=== PATIENT | male | born 1960 | race Caucasian/White ===

== ENCOUNTER 2016-10-16 19:33 | Emergency (ER) | payer OTHER ==
[~2016-10-16] VITALS: Ht 182.9 cm; Wt 93.0 kg
--- NOTE | 2016-10-16 19:55 | ED INFLUENZA/URI COMPLAINT ---
History of Present Illness General Chief Complaint: Upper Respiratory Sx/Fever Stated Complaint: FEVER, NOSE CONGESTION Source: patient, family Exam Limitations: no limitations Vital Signs & Intake/Output Vital Signs & Intake/Output Vital Signs Date Time Temp Pulse Resp B/P Pulse O2 O2 Flow FiO2 Ox Delivery Rate 10/167 99.1 95 18 142/65 94 Room Air 10/17 2123 100.3 10/16 2122 100.3 104 18 144/80 92 Room Air 10/16 2017 94 10/16 2013 101.0 10/16 1940 99.4 112 18 185/85 92 Room Air ED Intake and Output 10/17 0000 10/16 1200 Intake Total 150 Output Total Balance 150 Intake, Oral 150 Patient 205 lb Weight Allergies Coded Allergies: No Known Allergies (10/16/16) Reconcile Medications Albuterol Sulfate (Ventolin Hfa) 90 MCG HFA.AER.AD 2 PUF INH Q4-6 PRN PRN WHEEZING/SHORTNESS OF BREATH Aspirin (Ecotrin*) 81 MG TABLET.DR 1 TAB PO DAILY HEART/BLOOD (Reported) Atorvastatin Calcium 40 MG TABLET 1 TAB PO DAILY CHOLESTEROL (Reported) Azithromycin 250 MG TABLET 1 DP PO AD ANTIBIOTIC (Reported) 2 the first day followed by 1 for days 2-5 Clopidogrel Bisulfate (Clopidogrel) 75 MG TABLET 1 TAB PO DAILY BLOOD THINNER (Reported) Guaifenesin/Codeine Phosphate (Cheratussin AC Syrup) 100 MG-10 MG/5 ML LIQUID 10 ML PO Q4P PRN COUGH (Reported) Lisinopril 40 MG TABLET 1 TAB PO DAILY BP (Reported) Metformin HCl (Metformin HCl ER) 500 MG TAB.ER.24H 3 TAB PO QPM DM (Reported) Metoprolol Succinate 25 MG TAB 1 TAB PO DAILY HEART/BP (Reported) [place]-3 Fatty Acids/Fish Oil (Fish Oil 1,000 MG Softgel) 340 MG-1,000 MG CAPSULE 1 CAP PO BID SUPPLEMENT (Reported) Polycarbophil (Fiber) (Unknown Strength) TABLET (Unknown Dose) PO DAILY SUPPLEMENT (Reported) Timolol Maleate 0.5 % DROPS 1 GTT OD BID RIGHT EYE (Reported) Triage Note: PT STATES THAT HE WAS STARTED ON ABT MONDAY DUE TO COUGH AND FEVER, STATES THAT THE COUGH CONTINUES, PRODUCTIVE OF CLEAR SPUTUM, RUNNY NOSE , GREEN DISCHARGE. COMPLAINS OF FEVERS, TEMP 99.4, PT IS ON COUGH MED WITH CODIENE WHICH HELPS A LITTLE, O2 SAT 92 % AT TRIAGE Triage Nurses Notes Reviewed? yes HPI: Patient is a 56 year old male presents complaining of cough, chest congestion, fevers. Symptoms onset 8 days ago. Patient reports fevers between up to 102.7. Cough with intermittent sputum production. Patient saw his primary doctor on and was started on Azithromycin and Robitussin with codeine. Minimal improvement with the azithromycin(has taken 4 doses). Associated sore throat. Patient was flying back from a trip from the [place] when the symptoms started. (ASHLYN REVELES) Past History Travel History Traveled to [place] past 21 day No Medical History Any Pertinent Medical History? 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 No (ASHLYN REVELES) Review of Systems Review of Systems Constitutional: Reports: chills, fever, malaise. EENTM: Reports: nasal congestion, throat pain. Respiratory: Reports: cough, short of breath, wheezing. Cardiovascular: Denies: chest pain. GI: Denies: abdominal pain, vomiting. Musculoskeletal: Reports: no symptoms. Skin: Reports: no symptoms. Neurological/Psychological: Reports: no symptoms. Hematologic/Endocrine: Reports: no symptoms. Immunologic/Allergic: Reports: no symptoms. (ASHLYN REVELES) Physical Exam Physical Exam General Appearance: well developed/nourished, alert, awake Head: atraumatic, normal appearance Ears, Nose, Throat: normal ENT inspection, moist mucous membrane, hearing grossly normal, pharynx normal Neck: normal inspection, supple, full range of motion Respiratory: mild diffuse expiratory wheezing Cardiovascular: tachycardia (regular rhythm) Back: normal inspection, normal range of motion Extremities: normal inspection, normal capillary refill, normal range of motion, no edema Neurologic/Psych: no motor/sensory deficits, awake, alert, oriented x 3, normal gait, normal mood/affect Skin: intact, normal color, warm/dry Lymphatic: no anterior cervical ashwini Core Measures Severe Sepsis Present: No Septic Shock Present: No (ASHLYN REVELES) Progress Differential Diagnosis: influenza, pneumonia, pharyngitis, sinusitis, bronchitis , sepsis Plan of Care: Orders Procedure Date/time Status LACTIC ACID 10/16 2006 Complete CBC WITHOUT DIFFERENTIAL 10/16 2006 Complete BASIC METABOLIC PANEL 10/16 2006 Complete Laboratory Tests 10/16/16 2307: Lactic Acid Cancelled 10/16/16 2030: Anion Gap 12, Estimated GFR > 60, BUN/Creatinine Ratio 20.0, Glucose 364 H, Lactic Acid 1.3, Calcium 9.8, CBC w Diff NO MAN DIFF REQ, RBC 3.89 L, MCV 94.0, MCH 32.0 H, RDW 12.4, MPV 8.8, Gran % 77.5 H, Lymphocytes % 11.8 L, Monocytes % 9.4 H, Eosinophils % 0.9, Basophils % 0.4, Absolute Granulocytes 6.3, Absolute Lymphocytes 1.0 L, Absolute Monocytes 0.8 H, Absolute Eosinophils 0.1 , Absolute Basophils 0, PUBS MCHC 34.0 Microbiology 10/16 2010 BLOOD: Blood Culture - CAN Cancelled: Cancelled via OE: Per Decision 10/16 2010 BLOOD: Blood Culture - CAN Cancelled: Cancelled via OE: Per MD Decision 10/16/2016 9:00:33 PM: Discussed results of chest x-ray with patient and his . Patient reports mild to moderate improvement after nebulizer treatment. Patient appears to be resting comfortably. Oxygen saturation from 92-94% after nebulizer treatment. Discussed risks and benefits of corticosteroids. Given patient's history of diabetes, is not hypoxic will defer corticosteroids at this time. (ASHLYN REVELES) Diagnostic Imaging: Viewed by Me: Radiology Read. Discussed w/RAD: Radiology Read. Radiology Impression: PATIENT: KAITLYN FUENTES PRESENT AGE: 56 PATIENT ACCOUNT NO: [id number] : 56 LOCATION: [facility] ORDERING PHYSICIAN: EAN DOMINGO DO SERVICE DATE: 10/16/16 EXAM TYPE: RAD - XRY-CHEST XRAY, PA AND LATERAL EXAMINATION: XR CHEST CLINICAL INFORMATION: Cough and fevers. COMPARISON: Chest radiography 07/13/2007. TECHNIQUE: 2 views of the chest were obtained. FINDINGS: The lungs are well expanded. Diffuse bronchovascular prominence with peribronchial thickening. No convincing lobar consolidation. No pulmonary edema, pleural effusion, or pneumothorax. No mediastinal widening. No acute osseous abnormalities. IMPRESSION: Peribronchial thickening and bronchovascular prominence suspicious for small airways inflammation. No evidence of lobar pneumonia. DICTATED BY: KI HAILE MD DATE/TIME DICTATED:10/16/162005 RESIDENTIAL TECH:DAMIÁN DATE/TIME TRANSCRIBED:10/16/162005 CONFIDENTIAL, DO NOT COPY WITHOUT APPROPRIATE AUTHORIZATION. <Electronically signed in Other Vendor System> SIGNED BY: KI HAILE MD 10/16/162010 Initial ED EKG: none (ASHLYN REVELES) Departure Departure Time of Disposition: 2249 Disposition: HOME OR SELF CARE Condition: Stable Clinical Impression Primary Impression: Bronchitis Secondary Impressions: Hyperglycemia Referrals: THANG XIAO,GARTH Bush (PCP/Family) Additional Instructions: Complete the Z-estefani as directed. Continue the Robitussin with codeine as previously directed. Albuterol inhaler every 4-6 hours as needed for wheezing and shortness of breath. Follow up with your primary doctor this week for further evaluation, call in the morning for appointment. Return to the ER if breathing worsening, unable to stay hydrated or worsening of symptoms. Departure Forms: Customer Survey General Discharge Information Prescriptions: Current Visit Scripts Albuterol Sulfate (Ventolin Hfa) 2 PUF INH Q4-6 PRN PRN WHEEZING/SHORTNESS OF BREATH #1 INHAL (ASHLYN REVELES) PA/MILK HANDLER Co-Sign Statement Statement: ED Attending supervision documentation- [] I saw and evaluated the patient. I have also reviewed all the pertinent lab results and diagnostic results. I agree with the findings and the plan of care as documented in the PA's/MILK HANDLER's documentation. [x] I have reviewed the ED Record and agree with the PA's/MILK HANDLER's documentation. [] Additions or exceptions (if any) to the PAs/MILK HANDLER's note and plan are summarized below: [] (SD XIAO,RACHEL Bell)
--- NOTE | 2016-10-16 20:11 | RADIOLOGY REPORT ---
EXAMINATION: XR CHEST CLINICAL INFORMATION: Cough and fevers. COMPARISON: Chest radiography 07/13/2007. TECHNIQUE: 2 views of the chest were obtained. FINDINGS: The lungs are well expanded. Diffuse bronchovascular prominence with peribronchial thickening. No convincing lobar consolidation. No pulmonary edema, pleural effusion, or pneumothorax. No mediastinal widening. No acute osseous abnormalities. IMPRESSION: Peribronchial thickening and bronchovascular prominence suspicious for small airways inflammation. No evidence of lobar pneumonia.
[2016-10-16] MEDS ORDERED: ATORVASTATIN CA40 M1 PO (20:21)
[2016-10-16] MEDS ORDERED: AZITHROMYCIN250 M1 PO (20:21)
[2016-10-16] MEDS ORDERED: LISINOPRIL40 M1 PO (20:21)
[2016-10-16] MEDS ORDERED: CHERATUSSIN AC118 ML PO (20:22)
[2016-10-16] MEDS ORDERED: CLOPIDOGREL75 M1 PO (20:22)
[2016-10-16] MEDS ORDERED: METOPROLOL SUCC25 M1 PO (20:22)
[2016-10-16] MEDS ORDERED: METFORMIN HCL500 M4 PO (20:22)
[2016-10-16] MEDS ORDERED: ASPIRIN EC81 M1 PO (20:23)
[2016-10-16] MEDS ORDERED: TIMOLOL MALEATE5 M4 OD (20:23)
[2016-10-16] MEDS ORDERED: FISH OIL 1,0001 EAC1 PO (20:24)
[2016-10-16] MEDS ORDERED: FIBER625 MG PO (20:24)
[2016-10-16 20:47] LABS: ABSOLUTE BASOPHIL COUNT 0 /CUMM (0.0-0.2); ABSOLUTE EOSINOPHIL COUNT 0.1 /CUMM (0.0-0.7); ABSOLUTE GRANULOCYTE CT 6.3 /CUMM (1.4-6.5); ABSOLUTE MONOCYTE COUNT 0.8 /CUMM (0.10-0.60); BASOPHIL % 0.4 % (0.0-2.0); EOSINOPHIL % 0.9 % (0-5); GRANULOCYTE % 77.5 % (42.2-75.2); HEMATOCRIT 36.6 % (42-52); MEAN PLATELET VOLUME 8.8 FL (7.4-10.4); PLATELET COUNT 144 /CUMM (130-400); RBC DISTRIBUTION WIDTH 12.4 % (11.5-14.5); RED BLOOD CELL CT 3.89 /CUMM (4.70-6.10); WHITE BLOOD CELL COUNT 8.1 /CUMM (4.8-10.8)
[2016-10-16] MEDS ORDERED: VENTOLIN HFA18 GM INH ×2 (21:05→22:40)
[2016-10-16 22:47] VITALS: BP 142/65
== END 2016-10-16 22:59 ==
LOC: ERH 19:33
PROVIDERS: Physician Assistant
DX: J40 Bronchitis, not specified as acute or chronic (principal); R73.9 Hyperglycemia, unspecified
CPT/HCPCS: 1263; 87040; 96372; J1815

== ENCOUNTER 2016-10-19 12:07 | Inpatient (IN) | payer OTHER ==
[~2016-10-19] VITALS: Ht 180.3 cm; Wt 93.0 kg
[~2016-10-19 12:07] MED LIST: ASPIRIN EC81 M1 PO; ATORVASTATIN CA40 M1 PO; AZITHROMYCIN250 M1 PO; CHERATUSSIN AC118 ML PO; CLOPIDOGREL75 M1 PO; FIBER625 MG PO; FISH OIL 1,0001 EAC1 PO; LISINOPRIL40 M1 PO; METFORMIN HCL500 M4 PO; METOPROLOL SUCC25 M1 PO; TIMOLOL MALEATE5 M4 OD; VENTOLIN HFA18 GM INH
--- NOTE | 2016-10-19 12:24 | ED GENERAL ADULT ---
History of Present Illness General Chief Complaint: Upper Respiratory Sx/Fever Stated Complaint: URI/FEVER Vital Signs & Intake/Output Vital Signs & Intake/Output Vital Signs Date Time Temp Pulse Resp B/P Pulse O2 O2 Flow FiO2 Ox Delivery Rate 10/19 2001 99.3 99 20 168/68 93 10/19 194 101.2 10/19 1924 101.2 99 18 172/82 97 Room Air 10/19 1700 99.4 96 18 171/78 96 10/19 1408 99.0 103 24 147/70 92 Room Air 10/19 1248 98.2 67 20 161/79 94 Room Air 10/19 1236 93 Room Air Room Air 10/19 1222 98.0 103 26 138/67 89 Room Air Allergies Coded Allergies: No Known Allergies (10/16/16) Reconcile Medications Albuterol Sulfate (Ventolin Hfa) 90 MCG HFA.AER.AD 2 PUF INH Q4-6 PRN PRN WHEEZING/SHORTNESS OF BREATH Aspirin (Ecotrin*) 81 MG TABLET.DR 1 TAB PO DAILY HEART/BLOOD (Reported) Atorvastatin Calcium 40 MG TABLET 1 TAB PO DAILY CHOLESTEROL (Reported) Clopidogrel Bisulfate (Clopidogrel) 75 MG TABLET 1 TAB PO DAILY BLOOD THINNER (Reported) Guaifenesin/Codeine Phosphate (Cheratussin AC Syrup) 100 MG-10 MG/5 ML LIQUID 10 ML PO Q4P PRN COUGH (Reported) Lisinopril 40 MG TABLET 1 TAB PO DAILY BP (Reported) Metformin HCl (Metformin HCl ER) 500 MG TAB.ER.24H 3 TAB PO QPM DM (Reported) Metoprolol Succinate 25 MG TAB 1 TAB PO DAILY HEART/BP (Reported) [place]-3 Fatty Acids/Fish Oil (Fish Oil 1,000 MG Softgel) 340 MG-1,000 MG CAPSULE 1 CAP PO BID SUPPLEMENT (Reported) Polycarbophil (Fiber) (Unknown Strength) TABLET (Unknown Dose) PO DAILY SUPPLEMENT (Reported) Timolol Maleate 0.5 % DROPS 1 GTT OD BID RIGHT EYE (Reported) Past History Medical History Neurological: NONE EENT: NONE Cardiovascular: CAD, NSTEMI Respiratory: NONE Gastrointestinal: diverticulitis Renal: NONE Musculoskeletal: chronic back pain Psychiatric: NONE Endocrine: NONE Blood Disorders: DVT, peripheral vascular disease Cancer(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 Surgical History Surgical History: cardiac catheterization, vascular surgery bilateral lower extremities Psychosocial History Who do you live with Spouse What is your primary language Stateless Progress Plan of Care: Orders Procedure Date/time Status Consistent Carbohydrate 3 10/20 D Active Heart Healthy Diet 10/20 B Active CBC WITHOUT DIFFERENTIAL 10/20 0600 Active BASIC ELECTROLYTES PLUS BUN&CR 10/20 0600 Active Teach/Educate 10/19 2013 Active Pain Treatment and Response 10/19 2013 Active Nutritional Intake, Monitor 10/19 2013 Active Isolation 10/19 2013 Active Patient Care Conference 10/19 2013 Active Activity/Ambulation 10/19 2013 Active Lab Add-on Test 10/19 1620 Active STREP PNEUMO URINARY ANTIGEN 10/19 1619 Active LEGIONELLA URINARY ANTIGEN 10/19 1619 Active LOWER RESPIRATORY CULTURE 10/19 1619 Active LYME TITRE 10/19 1619 Active Admit to inpatient 10/19 1612 Active Vital Signs 10/19 1612 Active Code Status 10/19 1612 Active Pathway - chart 10/19 1451 Active House Staff 10/19 1451 Active Patient Data 10/19 1451 Active Code Status 10/19 1451 Complete Patient Data 10/19 1444 Active Intake & Output 10/19 1336 Active THROAT CULTURE W/QUICK STREP 10/19 1305 Active RAPID VIRAL INFLUENZA A 10/19 1242 Complete STREP PNEUMO URINARY ANTIGEN 10/19 1242 Complete LEGIONELLA URINARY ANTIGEN 10/19 1242 Complete BLOOD CULTURE 10/19 1242 Active URINALYSIS 10/19 1242 Complete TROPONIN LEVEL 10/19 1242 Complete WESTERGREN SED RATE 10/19 1242 Complete C-REACTIVE PROTEIN 10/19 1242 Complete COMPREHENSIVE METABOLIC PANEL 10/19 1242 Complete CBC WITHOUT DIFFERENTIAL 10/19 1242 Complete EKG 10/19 1242 Active VTE Mechanical Prophylaxis 10/19 UNK Active FingerStick- Glucose 10/19 UNK Active Current Medications Sig/Art Start time Last Medication Dose Stop Time Status Admin Atorvastatin Calcium 40 MG 1700 10/20 1700 AC (Lipitor) Aspirin Buffered 81 MG DAILY 10/20 1000 AC (Ecotrin) Ceftriaxone Sodium 1,000 MG DAILY 10/20 1000 AC (Rocephin) Clopidogrel Bisulfate 75 MG DAILY 10/20 1000 AC (Plavix) Doxycycline Hyclate 100 MG Q12 10/20 1000 AC (Vibramycin) Sodium Chloride 100 ML (Normal Saline 0.9%) Lisinopril 40 MG DAILY 10/20 1000 AC (Prinivil) Metoprolol Succinate 25 MG DAILY 10/20 1000 AC (Toprol XL) Guaifenesin 600 MG Q12 10/19 2200 AC (Mucinex) Timolol Maleate 1 GTT BID 10/19 220 AC (Timoptic) Albuterol Sulfate 2 PUF Q4-6 PRN PRN 10/19 1615 AC (Ventolin) Acetaminophen 1,000 MG Q6P PRN 10/19 1500 AC (Ofirmev) Oxycodone/ 2 TAB Q6P PRN 10/19 1500 AC Acetaminophen (Percocet) Moxifloxacin HCl 400 MG ONCE ONE 10/19 1445 CAN (Avelox I.v. ([facility] 10/19 1600 Only)) Laboratory Tests 10/19/16 1300: Anion Gap 10, Estimated GFR > 60, BUN/Creatinine Ratio 23.8, Glucose 485 H, Calcium 9.2, Total Bilirubin 0.8, AST 58, ALT 93 H, Alkaline Phosphatase 285 H , Troponin I < 0.01, C-Reactive Prot, Quant > 9.0 H, Total Protein 6.1 L, Albumin 3.3 L, Globulin 2.8, Albumin/Globulin Ratio 1.2, CBC w Diff MAN DIFF ORDERED, RBC 3.69 L, MCV 92.9, MCH 32.3 H, RDW 12.3, MPV 8.0, Gran % 85.7 H, Lymphocytes % 6.0 L, Monocytes % 7.7, Eosinophils % 0.6, Basophils % 0 L, Absolute Granulocytes 8.5 H, Absolute Lymphocytes 0.6 L, Absolute Monocytes 0.8 H, Absolute Eosinophils 0.1, Absolute Basophils 0, Platelet Estimate VERIFIED BY SMEAR, Anisocytosis 1+, PUBS MCHC 34.8, ESR [place] 116 H, Urinalysis LIGHT H, Urine Color YEL, Urine Clarity CLEAR, Urine pH 6.0, Ur Specific [place] 1.010, Urine Protein TRACE H, Urine Ketones NEG, Urine Nitrite NEG, Urine Bilirubin NEG, Urine Urobilinogen 0.2, Ur Leukocyte Esterase NEG, Ur Microscopic SEDIMENT EXAMINED, Urine RBC 1-3, Urine WBC 1-3 H, Ur Epithelial Cells FEW, Urine Bacteria RARE H, Urine Mucus FEW, Urine Hemoglobin NEG, Urine Glucose >=1000 H Microbiology 10/19 180 LOWER RESP: Respiratory Culture - RES 10/19 1802 LOWER RESP: Gram Stain - RES 10/19 1619 URINE ROUT: Legionella Antigen - COLB 10/19 1619 URINE ROUT: Streptococcus pneumoniae Antigen (M - COLB 10/19 1619 BLOOD: Blood Culture - CAN Cancelled: Cancelled via OE: Per MD Decision 10/19 1619 BLOOD: Blood Culture - CAN Cancelled: Cancelled via OE: Per MD Decision 10/19 1307 NASOPHARYN: Influenza Virus A & B Rapid Smear - COMP 10/19 1307 BLOOD: Blood Culture - RECD 10/19 1300 URINE ROUT: Legionella Antigen - COMP 10/19 1300 URINE ROUT: Streptococcus pneumoniae Antigen (M - COMP 10/19 1300 BLOOD: Blood Culture - RECD Departure Departure Condition: Stable Referrals: THANG XIAO,GARTH Bush (PCP/Family) Departure Forms: Customer Survey General Discharge Information
--- NOTE | 2016-10-19 12:31 | NUR ---
PT TO ED FOR FLU LIKE SYMPTOMS- FEVER, CHILLS, ACHES, SORE THROAT, INTERMITTENTLY PRODUCTIVE COUGH AND CONGESTION. PT STATES SYMPTOMS STARTED 10/08/16 AFTER RETURNING FROM [facility]. PT SAW HIS PRIMARY CARE ON MONDAY WHO PRESCRIBED A Z PACK AND COUGH MEDICINE WITH CODEINE. PT STILL WASN'T FEELING WELL AND WAS SEEN HERE MONDAY FOR WORK UP AND DC'D HOME. 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 PT ORIGINALLY 89-90% OXYGEN ON RA. PT PLACED ON 2L NC OXYGEN WITH IMPROVEMENT TO 96%. PT SINUS TACH 111 ON CAN VACUUM TESTER. PT ASLO TYPE II DIABETIC WITH F/S 353.
--- NOTE | 2016-10-19 12:40 | NUR ---
MASHA COHEN AT BEDSIDE FOR EVAL.
--- NOTE | 2016-10-19 12:52 | NUR ---
PT TO CAT SCAN VIA STRETCHER NOW.
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
[2016-10-19 13:22] LABS: ABSOLUTE BASOPHIL COUNT 0 /CUMM (0.0-0.2); ABSOLUTE EOSINOPHIL COUNT 0.1 /CUMM (0.0-0.7); ABSOLUTE GRANULOCYTE CT 8.5 /CUMM (1.4-6.5); ABSOLUTE LYMPH COUNT 0.6 /CUMM (1.2-3.4); ABSOLUTE MONOCYTE COUNT 0.8 /CUMM (0.10-0.60); BASOPHIL % 0 % (0.0-2.0); EOSINOPHIL % 0.6 % (0-5); GRANULOCYTE % 85.7 % (42.2-75.2); HEMATOCRIT 34.3 % (42-52); MEAN CORPUSCULAR HGB 32.3 PG (27.0-31.0); MEAN CORPUSCULAR HGB CONC 34.8 G/DL (33.0-37.0); MEAN CORPUSCULAR VOLUME 92.9 FL (80.0-94.0); PLATELET COUNT 188 /CUMM (130-400); RBC DISTRIBUTION WIDTH 12.3 % (11.5-14.5); RED BLOOD CELL CT 3.69 /CUMM (4.70-6.10); WHITE BLOOD CELL COUNT 9.9 /CUMM (4.8-10.8)
--- NOTE | 2016-10-19 13:22 | CT SCAN REPORT ---
EXAMINATION: CT CHEST WITHOUT CONTRAST CLINICAL INFORMATION: Persistent shortness of breath, cough, fever and chills. Evaluate for pneumonia. COMPARISON: CXR from 10/16/2016. TECHNIQUE: Multidetector volumetric CT imaging of the chest was done. Axial MIP volume rendering provided. Sagittal and coronal reformatted images were obtained. DLP: 382 mGy-cm FINDINGS: LUNGS AND PLEURA: There are innumerable tree-in-bud nodules within both lungs, most pronounced in the posterior segment of the right upper lobe and both lower lobes, and groundglass opacity is seen around some of the affected areas. In addition, there is patchy consolidation and groundglass attenuation of the left lower lobe. There are no cavitary lesions. No pleural effusion or pneumothorax. MEDIASTINUM: Three-vessel coronary artery atherosclerotic calcification. The heart size is normal. Pulmonary arteries and thoracic aorta are normal in caliber. No pericardial effusion. The esophagus and thyroid gland are unremarkable. LYMPHATICS: No pathologic sized axillary, hilar or mediastinal lymph nodes. UPPER ABDOMEN: Prominent spleen is 14.2 cm AP. The spleen measured up to 15.2 cm maximum dimension of 12/06/2008. Adrenal glands are unremarkable. OSSEOUS STRUCTURES: Multilevel, mild degenerative disc space narrowing and osteophyte formation of the dextroscoliotic thoracic spine. No suspicious osseous lesions. Within subcutaneous tissues at the T2-T3 level of upper back, there is a well-circumscribed 4.6 x 1.9 x 3.8 cm bilobed, cystic structure that has central attenuation of 9 HU. This is compatible with an epidermal inclusion cyst. IMPRESSION: 1. Left lower lobe bronchopneumonia. Also, there are numerable, bilateral tree-in-bud nodules, which are typically caused by infection but are nonspecific with regards to an organism. Differential includes bacterial organisms, including mycobacterial species and mycoplasma pneumonia. 2. Atherosclerotic disease of the coronary arteries. 3. Within the subcutaneous tissues of the upper back, there is a 4.6 x 1.9 x 3.8 cm cystic structure, compatible with an epidermal inclusion cyst.
--- NOTE | 2016-10-19 14:45 | NUR ---
P WALKED O2 SAT 92 RA
--- NOTE | 2016-10-19 15:06 | NUR ---
HOUSE STAFF AT BEDSIDE FOR EVAL.
--- NOTE | 2016-10-19 15:45 | History & Physical ---
MIGUELINA XIAO,[facility] 10/19/16 1545: General Information and HPI MD Statement: I have seen and personally examined KAITLYN AYERS and documented this H&P. The patient is a 56 year old M who presented with a patient stated chief complaint of [fever and cough]. Source of Information: patient, old records Exam Limitations: no limitations History of Present Illness: Mr. Ayers is 56 year old gentleman with past medical history significant for hypertension, hyperlipidemia, diabetes mellitus, coronary artery disease status post single-vessel catheterization in 2008, diverticulitis status post partial colon resection, appendectomy, hernia repair, cataract, peripheral vascular disease on Plavix. Patient presented to ED with chief complaint of fever, cough and shortness of breath. Patient reported that he was on vacation in [facility] [place] and came on October 08, patient started to complain of dry cough while in the flight, next day he started to have very bad sore throat associated with dysphagia and odynophagia, productive cough of brown sputum, fever with MAXIMUM TEMPERATURE 102.9. Patient visit that the PCP, tested negative for Streptococcus and had Z-Pipo course but symptoms didn't improve. Subsequently he visited the ED on Monday and had a chest x-ray that was inconclusive for any acute infection, patient was discharged after receiving breathing treatment. Patient reported that his symptoms continue to worsen with fever, chills, night sweats, congested nose, productive cough of brown sputum and decided to come for reevaluation today. Patient has history of contact with parrots. Patient denied any history of sick contacts, tick bite. He does report history of hiking. Patient denied headache, visual changes, skin rash, abdominal pain, diarrhea or constipation, urinary changes. Allergies/Medications Allergies: Coded Allergies: No Known Allergies (10/16/16) Home Med list Albuterol Sulfate (Ventolin Hfa) 90 MCG HFA.AER.AD 2 PUF INH Q4-6 PRN PRN WHEEZING/SHORTNESS OF BREATH Aspirin (Ecotrin*) 81 MG TABLET.DR 1 TAB PO DAILY HEART/BLOOD (Reported) Atorvastatin Calcium 40 MG TABLET 1 TAB PO DAILY CHOLESTEROL (Reported) Clopidogrel Bisulfate (Clopidogrel) 75 MG TABLET 1 TAB PO DAILY BLOOD THINNER (Reported) Guaifenesin/Codeine Phosphate (Cheratussin AC Syrup) 100 MG-10 MG/5 ML LIQUID 10 ML PO Q4P PRN COUGH (Reported) Lisinopril 40 MG TABLET 1 TAB PO DAILY BP (Reported) Metformin HCl (Metformin HCl ER) 500 MG TAB.ER.24H 3 TAB PO QPM DM (Reported) Metoprolol Succinate 25 MG TAB 1 TAB PO DAILY HEART/BP (Reported) Tyler-3 Fatty Acids/Fish Oil (Fish Oil 1,000 MG Softgel) 340 MG-1,000 MG CAPSULE 1 CAP PO BID SUPPLEMENT (Reported) Polycarbophil (Fiber) (Unknown Strength) TABLET (Unknown Dose) PO DAILY SUPPLEMENT (Reported) Timolol Maleate 0.5 % DROPS 1 GTT OD BID RIGHT EYE (Reported) Past History Travel History Traveled to [place] past 21 day No Medical History Neurological: NONE EENT: NONE Cardiovascular: CAD, NSTEMI Respiratory: NONE Gastrointestinal: diverticulitis Renal: NONE Musculoskeletal: chronic back pain Psychiatric: NONE Endocrine: TYPE II DM Blood Disorders: DVT, peripheral vascular disease Cancer(s): NONE TREATING ENGINEER/Reproductive: NONE Surgical History Surgical History: cardiac catheterization, vascular surgery bilateral lower extremities Review of Systems Review of Systems Constitutional: Reports: see HPI. Exam & Diagnostic Data Last 24 Hrs of Vital Signs/I&O Vital Signs Date Time Temp Pulse Resp B/P Pulse O2 O2 Flow FiO2 Ox Delivery Rate 10/19 1700 99.4 96 18 171/78 96 10/19 1408 99.0 103 24 147/70 92 Room Air 10/19 1248 98.2 67 20 161/79 94 Room Air 10/19 1236 93 Room Air Room Air 10/19 1222 98.0 103 26 138/67 89 Room Air Intake & Output 10/19 1600 10/19 0800 10/19 0000 Intake Total 1000 Output Total Balance 1000 Intake, IV 1000 Physical Exam General Appearance Alert, Oriented X3, Cooperative, No Acute Distress Skin No Rashes, No Breakdown, No Significant Lesion HEENT Atraumatic, PERRLA, EOMI, Mucous Membr. moist/pink Neck Supple, No JVD Lymphatic no cervical lymphadenopathy Cardiovascular Regular Rate, Normal S1, Normal S2, No Murmurs Lungs Normal Air Movement, diffuse rhonchi, no wheeze Abdomen Normal Bowel Sounds, Soft, No Tenderness Neurological Normal Gait, Normal Speech, Strength at 5/5 X4 Ext, Normal Tone, Sensation Intact, Cranial Nerves 3-12 NL, Reflexes 2+ Extremities No Clubbing, No Cyanosis, No Edema, Normal Pulses Assessment/Plan Assessment: Mr. Ayers is 56 year old gentleman with past medical history significant for hypertension, hyperlipidemia, diabetes mellitus, coronary artery disease status post single-vessel catheterization in 2009, diverticulitis status post partial colon resection, appendectomy, hernia repair, cataract, peripheral vascular disease on Plavix. Patient presented to ED with chief complaint of fever, cough and shortness of breath. On admission Vital signs Temperature 98, pulse 103, respiratory rate 26, saturation 89% on room air, blood pressure 138/67 Labs h&h 11.9/34.3, WBC 9.9, platelet 188, sodium 132, potassium 4.3, BUN/creatinine 19/0.8, glucose 485, urine negative for UA CT chest 10/19/16 IMPRESSION: 1. Left lower lobe bronchopneumonia. Also, there are numerable, bilateral tree- in-bud nodules, which are typically caused by infection but are nonspecific with regards to an organism. Differential includes bacterial organisms, including mycobacterial species and mycoplasma pneumonia. 2. Atherosclerotic disease of the coronary arteries. 3. Within the subcutaneous tissues of the upper back, there is a 4.6 x 1.9 x 3.8 cm cystic structure, compatible with an epidermal inclusion cyst. Problem list #Community-acquired pneumonia #Hypertension and hyperlipidemia #Diabetes mellitus #Community-acquired pneumonia -Admit to general medical floor -CT finding suspecting atypical pneumonia -Patient has history of contact with parrots excreation -Will cover community-acquired pneumonia, and organisms in addition to a typical pneumonia mycoplasma, Legionella, Chlamydophila psittaci -Start ceftriaxone and doxycycline IV -TRC -Mucinex -Sputum culture, blood culture, urine culture -Urine strep and Legionella antigen -IV fluid -CBC and CMP tomorrow morning #Hypertension and hyperlipidemia -Continue metoprolol 25 mg by mouth daily -Continue lisinopril 40 mg by mouth daily -Continue Lipitor 40 mg daily -Continue clopidogrel 75 mg by mouth daily continue aspirin 81 mg daily #Diabetes mellitus -Accu-Chek -NovoLog sliding scale before meals and bedtime DVT prophylaxis Lovenox Code full Diet heart healthy As Ranked By This Provider Problem List: 1. Pneumonia Core Measures/Miscellaneous Acute Coronary Syndrome ACS Diagnosis: No Cerebrovascular Accident CVA/TIA Diagnosis: No Congestive Heart Failure CHF Diagnosis: No Venous Thromboembolism VTE Risk Factors: Age > 40 No [facility] VTE prophylaxis d/t: No contraindications No VTE Pharm Prophylaxis d/t: No contraindications VTE Diagnosis: No VTE Type: NONE VTE Confirmed by (Test): NONE Severe Sepsis Severe Sepsis Present: No Septic Shock Septic Shock Present: No Miscellaneous Documentation Attending Case Discussed With: IRENE NEGRO MD Primary Care Physician: GARTH SPENCE MD Patient sees these Specialists Cardiology, vascular surgery Level of Patient Care: General Medicine RUSSELL CARBALLO 10/19/16 1607: Resident Review Statement Resident Statement: examined this patient, discussed with agriculture internship Other Findings: Patient is a 56-year-old male with past medical history of hypertension, hyperlipidemia, diabetes mellitus, coronary artery disease status post cath in 2008, peripheral vascular disease, DVT, chronic back pain presented to the ER with chief complaint of worsening cough, throat pain, fever and chills for the last 10 days. Patient had recently traveled to [facility] for a vacation and stayed there for 10 days. While coming back, on the flight he started feeling throat irritation and mild cough which is not thinking it was the flight cabin air that was bothering him. His symptoms worsened with fevers, night sweats and productive cough after returning home. MAXIMUM TEMPERATURE measured at home was 102.9. Cough is productive of brownish sputum. He was seen by his primary doctor and a chest x-ray and flu swab done at the office was negative. He was prescribed Z-Pipo and a cough syrup which mildly improved his throat pain. Hi symptoms s did not get better and presented to the ER 3 days back with worsening cough, fevers, chills and body ache. Another chest x-ray and blood work done in the ER were negative for any acute findings. Patient denies any chest pain, palpitations, nausea, vomiting, abdominal discomfort, urinary or bowel symptoms. He does have mild shortness of breath and occasional mild headaches. Of note he was bitten by a parrot while he was in the [facility]. Denies any rashes, insect bites, sick contacts, contacted but droppings. He is very active at baseline and exercises regularly. Nonsmoker and an occasional alcohol user. 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 Extensive [place] No history of tick bite. No history of Lyme's. Dr. Spence is his PCP In the ER vitals were temperature 90.8, pulse 13, respiration 26, blood pressure 136 /67, saturating 89% on room air. Saturation subsequently increase to above 90% on room air. Pertinent labs H&H 11.9 /34.3, ESR 116, sodium 132, glucose 485, alkaline phosphatase 285, ALT 93, troponin negative, C-reactive protein >9. UA: Clean, Glucose>[address]: Left Lower lobe bronchopneumonia. Differentials Chris pectorals patient/Mycoplasma pneumonia. Atherosclerotic disease of coronary arteries. Epidermal cyst in the upper back. Physical exam: Gen.: Awake alert and oriented, no acute distress. HEENT: PERRLA, EOMI, no lymphadenopathy Respiratory: Clear breath sounds, occasional rhonchi left basal region CVS: S1-S2 heard, no murmurs Extremities: No edema, no rashes, pulses palpable Plan: 1. Community-acquired pneumonia: Failed outpatient antibiotic therapy. Recent travel to [facility]/Bird bite/outdoor activity in [facility]. High ESR, CRP. -Admit patient to [facility] -Gentle hydration with IV normal saline at 75 mL an hourX1 bag -Maintain oxygen saturations more than 92%. Oxygen as needed -TRC nebs [id number] -Patient received 1 dose of ceftazidime and vancomycin in the ED. Will start IV ceftriaxone and IV doxycycline to provide coverage for atypical organisms.(? Psittacosis given history of contact with birds) -Check antibody to Chlamydia Psittaci(MIF test) -Flu swab in the ED was negative -Check urine strep and Legionella -Check Lyme titer -Check munguia cultures -Continue IV Tylenol for pain -Mucinex to loosen up secretions 2. Type 2 diabetes mellitus -Hold home dose of metformin(increased to 1500 mg [address] Spence) -3 times a day Accu-Cheks -NovoLog with meals 3. History of coronary artery disease/peripheral vascular disease/hypertension -Continue aspirin, Plavix, statin and fish oil -Continue lisinopril and metoprolol Heart healthy diet Mild pain pathway Full code IRENE NEGRO MD 10/19/16 7780: Attending MD Review Statement Attending Statement Attending Statement: examined this patient, discuss w/resident/PA/STALLION MANAGER, agreed w/resident/PA/STALLION MANAGER, discussed with family, reviewed EMR data (avail), discussed with nursing, reviewed images, amended to note Attending Assessment/Plan: The patient is a 56 yo male with h/o HTN, HL, DM2, CAD (s/p stent 2008), and PVD who presented in the [place] ED with c/o fever to 102.9 and persistent cough and dyspnea that have progressed over the last week. He had a recent trip to the [facility] and stated began cough when on returning flight 10/08. He also noted some pharyngitis, cough with some dark sputum, mild headache and malaise. He saw his PCP and there was ? of positive strep in office. He was treated with Z-pipo and no change in symptoms. In the ED 3 days ago he had a CXR that was negative for infiltrate and he had an aerosol treatment with some relief. He returned with worsening symptoms. Flu swab was negative. CT of chest showed a LLL infiltrate. He was noted to be relatively hypoxemic with a pulse ox of 89% on RA initially. [place], however no known tick bite or rash. When in the [facility] he was bitten by a parrot and had exposure to parrot droppings (all over ground). Physical Exam: VS: T 102.9 at home (99.0 in ED), P 110, R 26, BP 138/67, PO 89% RA-92% HEENT: eyes- PERRLA, EOMI cristina- dry mucosa w/o erythema or exudate Neck: no adenopathy, bruits, or JVD Chest: mild rhonchi in left lower lung field and scattered rhonchi elsewhere, no wheeze or rales Cor: tachy, reg, nl S1, S2 w/o murm Abd: BS+, soft, NT, - masses or HSM Ext: no edema, pulses 2+ Neuro: alert & oriented x 3, non-focal exam Derm; large non-tender sebaceous cyst on mid back (recurrent) Labs/Tests: as above Impression/Plan: #Pneumonia- Community acquired. Patient with left lower lobe infiltrate and pattern elsewhere in lungs on CT suggesting possible atypical pneumonia. No wheezing audible, however patient felt subjectively better post albuterol aerosol. Does have recent travel history and exposure to par[place] droppings [place] is also in differential. Failed on po Zithromax as outpatient. Plan: Admit to medical floor. WBC is normal with left shift. ESR 116, CRP > 9.8, . LFT's abnormal (ALT 93), and hyponatremia (132) suggest atypical infection. Culture sputum, BC x 2 and usual urinary Ag testing (strep, Legionella. Will cover with IV Ceftriaxone and Doxycycline (to cover atypical and possible psittacosis). Check psittacosis Ab (IgM) level. Mucinex 600 mg bid. #Volume Depletion- patient appears clinically dry with dry mucosa and decreased skin turgor. Has had high fever at home and diminished po intake. Plan: Agree with IV hydration with NS. #Hypoxemia- as above, oxygen saturation was 89% on presentation and patient was tachypneic. Did respond to albuterol aerosol and there may be some component of bronchospasm. The patient has no h/o asthma/COPD. Plan: Will continue aerosol at present and follow. #DM2-sugar as above. Patient normally on Metformin and dose was increased to 3 tabs by PCP (Dr. Spence) a few months ago when Hgb A1C was 6.9. Sugar high at present secondary to infection. Plan: Will hold Metformin and check glucoscans with sliding scale insulin. #HTN- BP as above. Plan: Continue Metoprolol and Lisinopril. #CAD/PVD- s/p prior stent. No cardiac symptoms. Plan: Continue ASA/Plavix/Statin. #Hyperlipidemia- on Atorvastatin. Plan: Continue Atorvastatin. #Glaucoma- on Timolol drops. Plan: Continue Timolol drops.
--- NOTE | 2016-10-19 17:07 | NUR ---
FOOD TRAY ORDERED PER PT REQUEST: TUNA AND CHICKEN NOODLE SOUP
--- NOTE | 2016-10-19 17:28 | NUR ---
PT MEDICATED PER EMAR, INSULIN DOSE VERIFIED WITH OSVALDO DAVIS.
--- NOTE | 2016-10-19 17:50 | NUR ---
PT GOING TO ROOM 206-1.
--- NOTE | 2016-10-19 18:06 | NUR ---
SPUTUM SAMPLE SENT TO LAB.
--- NOTE | 2016-10-19 19:35 | NUR ---
REPORT GIVEN TO NED DAVIS.
[2016-10-19 20:02] VITALS: BP 168/68
--- NOTE | 2016-10-19 21:18 | Admission Certification ---
Admission Certification Certification Statement - As attending physician, I certify that at the time of - admission, based on clinical presentation, severity of - symptoms, need for further diagnostic testing and - therapeutic interventions, and risk of adverse outcomes - without in-hospital treatment, in my clinical assessment, - this patient requires an acute hospital stay for a minimum - of two nights or longer. I have also considered psychsocial - factors such as support system, advanced age, financial - issues, cognitive issues, and failed out-patient treatments, - past re-admission history, safety of patient, and lack of - compliance as applicable. Specific rationale supporting this admission is: The patient presents with fever (102.9), dyspnea and hypoxemia, LLL pneumonia- failed on outpatient therapy. Needs admission for IV antibiotics, oxygen support and monitoring. Evaluate for CAP vs psitticosis.
[2016-10-19 22:01] VITALS: BP 139/72
--- NOTE | 2016-10-19 23:23 | NUR ---
PT ARRIVED ON THE FLOOR AT 1950 R/T PNA. ALERT/ORIENTED X3. LS DIMINISHED TO BLL. CONGESTED PRODUCTIVE COUGH WITH SMALL YELLOW THICK SPUTUM. ABD SOFT NONTENDER. +BS ALL QUADRANTS. DENIES PAIN . VOIDING WITH NO DIFFICULTIES. TOLERATIONG DIET WELL. BS 298. ORDERS IN PLACE. POC IN PLACE. IV FLUIDS STARTED ACCORDING TO ORDERS.WILL CONTIINUE TO MONITOR ACCORDING TO POC.
[2016-10-20 06:57] VITALS: BP 144/75
--- NOTE | 2016-10-20 07:17 | PN- Housestaff ---
MIGUELINA XIAO,[facility] 10/20/16 0717: Subjective Follow-up For: Community-acquired pneumonia Subjective: Patient was seen and examined this morning, he reported that he didn't sleep well last night because of excessive cough, he reported night sweat, cold chills but denied any fever. He also reported some headache, denied visual changes, auditory changes, chest pain, shortness of breath, abdominal pain, urinary changes. Review of Systems Constitutional: Reports: see HPI. Objective Last 24 Hrs of Vital Signs/I&O Vital Signs Date Time Temp Pulse Resp B/P Pulse O2 O2 Flow FiO2 Ox Delivery Rate 10/20 1456 98.2 88 18 136/64 92 Room Air 10/20 1400 Room Air 10/20 1357 94 Room Air 10/20 0852 86 144/75 10/20 0846 86 144/75 10/20 0800 91 Room Air 10/20 0657 98.5 86 18 144/75 91 Room Air 10/19 2201 98.1 106 20 139/72 92 10/19 2044 98.1 10/19 2001 99.3 99 20 168/68 93 10/19 1945 101.2 10/19 1925 101.2 99 18 172/82 97 Room Air Intake & Output 10/20 1600 10/20 0800 10/20 0000 Intake Total 1295 1080 630 Output Total Balance 1295 1080 630 Intake, IV 575 600 150 Intake, Oral 720 480 480 Number 0 Bowel Movements Patient 92.986 kg Weight Physical Exam General Appearance: Alert, Oriented X3, Cooperative, No Acute Distress Skin: No Rashes, No Breakdown, No Significant Lesion HEENT: Atraumatic, PERRLA, EOMI, Mucous Membr. moist/pink Neck: Supple, No JVD Cardiovascular: Regular Rate, Normal S1, Normal S2, No Murmurs Lungs: Normal Air Movement, basal fine crepitation Abdomen: Normal Bowel Sounds, Soft, No Tenderness Neurological: Normal Gait, Normal Speech, Strength at 5/5 X4 Ext, Normal Tone, Sensation Intact, Cranial Nerves 3-12 NL, Reflexes 2+ Extremities: No Clubbing, No Cyanosis, No Edema, Normal Pulses Assessment/Plan Assessment: Mr. Ayers is 56 year old gentleman with past medical history significant for hypertension, hyperlipidemia, diabetes mellitus, coronary artery disease status post single-vessel catheterization in 2008, diverticulitis status post partial colon resection, appendectomy, hernia repair, cataract, peripheral vascular disease on Plavix. Patient presented to ED with chief complaint of fever, cough and shortness of breath. CT chest 10/19/16 IMPRESSION: 1. Left lower lobe bronchopneumonia. Also, there are numerable, bilateral tree- in-bud nodules, which are typically caused by infection but are nonspecific with regards to an organism. Differential includes bacterial organisms, including mycobacterial species and mycoplasma pneumonia. 2. Atherosclerotic disease of the coronary arteries. 3. Within the subcutaneous tissues of the upper back, there is a 4.6 x 1.9 x 3.8 cm cystic structure, compatible with an epidermal inclusion cyst. Problem list #Community-acquired pneumonia #Hypertension and hyperlipidemia #Diabetes mellitus #Community-acquired pneumonia -CT finding suspecting atypical pneumonia -Patient has history of contact with parrots excreation -Will cover community-acquired pneumonia organisms in addition to atypical pneumonia mycoplasma, Legionella, Chlamydophila psittaci -Continue ceftriaxone and doxycycline IV DAY#2 -TRC when necessary -Start Tessalon -Start Robitussin DM liquid -Sputum culture grew mixed sonny day 1 -Blood culture negative -Urine strep and Legionella antigen are negative -Influenza negative #Hypertension and hyperlipidemia -Continue metoprolol 25 mg by mouth daily -Continue lisinopril 40 mg by mouth daily -Continue Lipitor 40 mg daily -Continue clopidogrel 75 mg by mouth daily continue aspirin 81 mg daily #Diabetes mellitus -Accu-Chek, maximum reading of 385 -We will increase to high dose NovoLog sliding scale before meals and bedtime DVT prophylaxis Lovenox Code full Diet heart healthy Problem List: 1. Community acquired pneumonia Pain Ratin Pain Location: None Pain Goal: Pain 4 or less Pain Plan: Mild pain pathway Tomorrow's Labs & Rationales: None IRENE NEGRO MD 10/20/16 2146: Attending MD Review Statement Attending Statement Attending MD Statement: examined this patient, discuss w/resident/PA/MULTIMEDIA PROGRAMMER, agreed w/resident/PA/MULTIMEDIA PROGRAMMER, discussed with family, reviewed EMR data (avail), discussed with nursing, amended to note Attending Assessment/Plan: The patient was seen and discussed with house staff. Agree with the plan of care as above.
[2016-10-20 08:11] LABS: ABSOLUTE BASOPHIL COUNT 0 /CUMM (0.0-0.2); ABSOLUTE EOSINOPHIL COUNT 0.1 /CUMM (0.0-0.7); ABSOLUTE GRANULOCYTE CT 7.5 /CUMM (1.4-6.5); ABSOLUTE MONOCYTE COUNT 0.9 /CUMM (0.10-0.60); BASOPHIL % 0.1 % (0.0-2.0); HEMATOCRIT 31.7 % (42-52); MEAN CORPUSCULAR HGB 31.7 PG (27.0-31.0); MEAN CORPUSCULAR VOLUME 93.4 FL (80.0-94.0); MEAN PLATELET VOLUME 8.1 FL (7.4-10.4); PLATELET COUNT 197 /CUMM (130-400); RBC DISTRIBUTION WIDTH 12.4 % (11.5-14.5); RED BLOOD CELL CT 3.39 /CUMM (4.70-6.10); WHITE BLOOD CELL COUNT 9.5 /CUMM (4.8-10.8)
[2016-10-20 14:56] VITALS: BP 136/64
[2016-10-20 22:43] VITALS: BP 150/80
[2016-10-21 06:32] VITALS: BP 138/75
--- NOTE | 2016-10-21 07:29 | PN- Housestaff ---
MIGUELINA XIAO,[facility] 10/21/16 0729: Subjective Follow-up For: Community-acquired pneumonia Subjective: Patient was seen and examined this morning, he denied fever, chills, shortness of breath. He reported having dry cough throughout the night, im the morning it 's productive cough of greenish sputum. Patient has good oral intake, last bowel movement yesterday. Patient denied any joint or muscle pain. Patient has been ambulating around on room air with saturation 92%. Patient reported muscular neck pain, denied weakness or numbness. Review of Systems Constitutional: Reports: see HPI. Objective Last 24 Hrs of Vital Signs/I&O Vital Signs Date Time Temp Pulse Resp B/P Pulse O2 O2 Flow FiO2 Ox Delivery Rate 10/21 0914 77 138/75 10/21 0914 77 138/75 10/21 0838 93 Room Air Room Air 10/21 0632 98.9 77 77 138/75 93 Room Air 10/21 0000 Room Air 10/20 2243 97.9 86 19 150/80 93 10/20 2000 95 Room Air 10/20 1456 98.2 88 18 136/64 92 Room Air 10/20 1400 Room Air 10/20 1357 94 Room Air Intake & Output 10/21 1600 10/21 0800 10/21 0000 Intake Total 600 630 Output Total Balance 600 630 Intake, IV 120 150 Intake, Oral 480 480 Physical Exam General Appearance: Alert, Oriented X3, Cooperative, No Acute Distress Skin: No Rashes, No Breakdown, No Significant Lesion HEENT: Atraumatic, PERRLA, EOMI, Mucous Membr. moist/pink Neck: Supple Cardiovascular: Regular Rate, Normal S1, Normal S2, No Murmurs Lungs: Decrease at entry bilateral Diffuse fine wheezes Abdomen: Normal Bowel Sounds, Soft, No Tenderness Neurological: Normal Gait, Normal Speech, Strength at 5/5 X4 Ext, Normal Tone, Sensation Intact, Cranial Nerves 3-12 NL, Reflexes 2+ Extremities: No Clubbing, No Cyanosis, No Edema, Normal Pulses Assessment/Plan Assessment: Mr. Ayers is 56 year old gentleman with past medical history significant for hypertension, hyperlipidemia, diabetes mellitus, coronary artery disease status post single-vessel catheterization in 2008, diverticulitis status post partial colon resection, appendectomy, hernia repair, cataract, peripheral vascular disease on Plavix. Patient presented to ED with chief complaint of fever, cough and shortness of breath. CT chest 10/19/16 IMPRESSION: 1. Left lower lobe bronchopneumonia. Also, there are numerable, bilateral tree- in-bud nodules, which are typically caused by infection but are nonspecific with regards to an organism. Differential includes bacterial organisms, including mycobacterial species and mycoplasma pneumonia. 2. Atherosclerotic disease of the coronary arteries. 3. Within the subcutaneous tissues of the upper back, there is a 4.6 x 1.9 x 3.8 cm cystic structure, compatible with an epidermal inclusion cyst. Problem list #Community-acquired pneumonia #Hypertension and hyperlipidemia #Diabetes mellitus #Community-acquired pneumonia -CT finding suspecting atypical pneumonia -Patient has history of contact with parrots excreation -Will cover community-acquired pneumonia organisms in addition to atypical pneumonia mycoplasma, Legionella, Chlamydophila psittaci -Continue ceftriaxone and doxycycline IV DAY#3 -TRC when necessary -Continue Tessalon -Continue Robitussin DM liquid -Sputum culture grew mixed sonny day 1 -Blood culture negative -Urine strep and Legionella antigen are negative -Influenza negative -Lyme titer and Chlamydia Psittaci(MIF test) are pending #Hypertension and hyperlipidemia -Continue metoprolol 25 mg by mouth daily -Continue lisinopril 40 mg by mouth daily -Continue Lipitor 40 mg daily -Continue clopidogrel 75 mg by mouth daily continue aspirin 81 mg daily #Diabetes mellitus -Accu-Chek, maximum reading of 385 -Continue NovoLog sliding scale before meals and bedtime DVT prophylaxis Lovenox Code full Diet heart healthy Problem List: 1. Community acquired pneumonia Pain Ratin Pain Location: Neck pain Pain Goal: Pain 4 or less Pain Plan: Moderate pain pathway Tomorrow's Labs & Rationales: Follow-up line and Chlamydia Psittaci(MIF test) titers IRENE NEGRO MD 10/21/16 7478: Attending MD Review Statement Attending Statement Attending MD Statement: examined this patient, discuss w/resident/PA/WEARING APPAREL PRESSER, agreed w/resident/PA/WEARING APPAREL PRESSER, reviewed EMR data (avail), discussed with nursing, discussed with case mgmt, amended to note Attending Assessment/Plan: The patient was seen and discussed with house staff. Agree with the plan of care as outlined.
[2016-10-21] MEDS ORDERED: TUSSIONEX PENN115 ML PO (11:42)
[2016-10-21] MEDS ORDERED: DOXYCYCLINE HY100 M4 PO ×2 (11:44→16:31)
[2016-10-21] MEDS ORDERED: TESSALON PERLE100 M1 PO (11:44)
[2016-10-21] MEDS ORDERED: MUCINEX600 M1 PO (11:44)
--- NOTE | 2016-10-21 11:45 | Patient Discharge Instructions ---
Discharge Instructions General Discharge Information Special Instructions: -Please follow up with your primary care physician within one week after discharge -Please follow up with you hot dip plater after discharge (you've regular follow- up) -Please take your medication as instructed Acute Coronary Syndrome Inclusion Criteria At DC or during hospital stay patient has or had the following: ACS DIAGNOSIS No Discharge Core Measures Meds if any: Prescribed or Continued at Discharge Meds if any: NOT Prescribed or Continued at Discharge Congestive Heart Failure Inclusion Criteria At DC or during hospital stay patient has or had the following: CHF DIAGNOSIS No Discharge Core Measures Meds if any: Prescribed or Continued at Discharge Meds if any: NOT Prescribed or Continued at Discharge Cerebrovascular accident Inclusion Criteria At DC or during hospital stay patient has or had the following: CVA/TIA Diagnosis No Discharge Core Measures Meds if any: Prescribed or Continued at Discharge Meds if any: NOT Prescribed or Continued at Discharge Venous thromboembolism Inclusion Criteria VTE Diagnosis No VTE Type NONE VTE Confirmed by (Test) NONE Discharge Core Measures - Per Current guidelines, there needs to be overlap - treatment for the first 5 days of Warfarin therapy. - If discharged on Warfarin prior to 5 days of - overlap therapy, the patient will need to be - assessed for post discharge needs including - *Post discharge parental anticoagulation - *Warfarin and/or parental anticoagulation education - *Follow up date to check INR post discharge At least 5 days overlap therapy as Inpatient Yes Meds if any: Prescribed or Continued at Discharge Note: Overlap Therapy is Warfarin and Anticoagulant Meds if any: NOT Prescribed or Continued at Discharge
[2016-10-21 15:27] VITALS: BP 145/70
--- NOTE | 2016-10-21 17:23 | Discharge Summary ---
Visit Information Visit Dates Admission Date: 10/19/16 Discharge Date: 10/22/16 Hospital Course Course Attending Physician: IRENE NEGRO MD Primary Care Physician: THANG XIAO,GARTH Bush Hospital Course: Mr. Ayers is 56 year old gentleman with past medical history significant for hypertension, hyperlipidemia, diabetes mellitus, coronary artery disease status post single-vessel catheterization in 2008, diverticulitis status post partial colon resection, appendectomy, hernia repair, cataract, peripheral vascular disease on Plavix. Patient presented to ED with chief complaint of fever, cough and shortness of breath. Patient reported that he was on vacation in [facility] and came on October 08 (10 days prior to admission), started to complain of dry cough while in the flight, symptoms progressed to severe sore throat with dysphagia and odynophagia , fever of 102.9, chills, night sweats, congested nose and productive cough of brown sputum symptoms failed outpatient treatment with Z-Pipo. Patient has history of contact with parrots. Patient denied any history of sick contacts, tick bite. He did report history of hiking. Patient denied headache, visual changes, skin rash, abdominal pain, diarrhea or constipation, urinary changes. On admission Vital signs Temperature 98, pulse 103, respiratory rate 26, saturation 89% on room air, blood pressure 138/67 Labs h&h 11.9/34.3, WBC 9.9, platelet 188, sodium 132, potassium 4.3, BUN/creatinine 19/0.8, glucose 485, urine negative for UA CT chest 10/19/16 IMPRESSION: 1. Left lower lobe bronchopneumonia. Also, there are numerable, bilateral tree- in-bud nodules, which are typically caused by infection but are nonspecific with regards to an organism. Differential includes bacterial organisms, including mycobacterial species and mycoplasma pneumonia. 2. Atherosclerotic disease of the coronary arteries. 3. Within the subcutaneous tissues of the upper back, there is a 4.6 x 1.9 x 3.8 cm cystic structure, compatible with an epidermal inclusion cyst. Problem list #Community-acquired pneumonia #Hypertension and hyperlipidemia #Diabetes mellitus #Community-acquired pneumonia -Patient was admitted to general medical -Since the patient has history of contact with parrots excreation in addition to CT finding that suspecting atypical pneumonia, patient was treated with antibiotic to cover a typical pneumonia organisms such as mycoplasma, Legionella , Chlamydophila psittaci--ceftriaxone and doxycycline IV -Patient was discharged on doxycycline and Augmentin -For cough symptomatic relief, patient was started on Tessalon and Robitussin DM liquid -Sputum culture positive for Haemophilus influenza ampicillin resistant -Blood culture negative -Urine strep and Legionella antigen are negative -Influenza negative -Lyme titer negative -Chlamydia Psittaci IgG, IgM, IgA negative #Hypertension and hyperlipidemia: We continued with home medication -Continue metoprolol 25 mg by mouth daily -Continue lisinopril 40 mg by mouth daily -Continue Lipitor 40 mg daily -Continue clopidogrel 75 mg by mouth daily continue aspirin 81 mg daily #Diabetes mellitus -Continue NovoLog sliding scale before meals and bedtime DVT prophylaxis Lovenox Code full Diet consistent carbohydrate Allergies: Coded Allergies: No Known Allergies (10/16/16) Disposition Summary Disposition Principal Diagnosis: Community-acquired pneumonia/atypical pneumonia Additional Diagnosis: Diabetes mellitus Discharge Disposition: home or self care Discharge Instructions General Discharge Information Code Status: Full Code Patient's Diet: Diabetic diet Patient's Activity: As tolerated Follow-Up Instructions/Appts: -Please follow up with your primary care physician within one week after discharge -Please follow up with you production welding supervisor after discharge (you've regular follow- up) -Please take your medication as instructed Medications at Discharge Discharge Medications: Stop taking the following medications: Guaifenesin/Codeine Phosphate (Cheratussin AC Syrup) 100 MG-10 MG/5 ML LIQUID ORAL EVERY 4 HOURS NEEDED as needed for COUGH Qty = 120 Continue taking these medications: Lisinopril (Lisinopril) 40 MG TABLET 1 Tablet ORAL DAILY Qty = 30 Comments: Last Taken:10/22/16 Time:8:17 Atorvastatin Calcium (Atorvastatin Calcium) 40 MG TABLET 1 Tablet ORAL DAILY Qty = 30 Comments: Last Taken:10/21/16 Time:10:00 Metformin HCl (Metformin HCl ER) 500 MG TAB.ER.24H 3 Tablet ORAL Every night Qty = 90 Comments: NOT GIVEN IN THE HOSPITAL Clopidogrel Bisulfate (Clopidogrel) 75 MG TABLET 1 Tablet ORAL DAILY Qty = 30 Comments: Last Taken:10/22/16 Time:8:17 Metoprolol Succinate (Metoprolol Succinate) 25 MG TAB 1 Tablet ORAL DAILY Qty = 30 Comments: PER PT Timolol Maleate (Timolol Maleate) 0.5 % DROPS 1 Drop Right Eye TWICE DAILY Qty = 5 Comments: Last Taken:10/22/16 Time:8:30AM Aspirin (Ecotrin*) 81 MG TABLET.DR 1 Tablet ORAL DAILY Comments: Last Taken:10/21/16 Time:10:00PM [place]-3 Fatty Acids/Fish Oil (Fish Oil 1,000 MG Softgel) 340 MG-1,000 MG CAPSULE 1 Capsule ORAL TWICE DAILY Comments: Last Taken: NOT GIVEN IN THE HOSPITAL Time: Polycarbophil (Fiber) (Unknown Strength) TABLET Unknown Dose ORAL DAILY Comments: NOT GIVEN IN THE HOSPITAL Albuterol Sulfate (Ventolin Hfa) 90 MCG HFA.AER.AD 2 Puff Inhale through mouth EVERY 4-6 HOURS NEEDED as needed for WHEEZING /SHORTNESS OF BREATH Qty = 1 Comments: Last Taken:10/22/16 Time:10:00AM Guaifenesin (Mucinex) 600 MG TAB.ER.12H 1 Tablet ORAL TWICE DAILY Qty = 14 Comments: Last Taken:10/21/16 Time:10:00PM Benzonatate (Tessalon Perle) 100 MG CAPSULE 1 Capsule ORAL THREE TIMES DAILY Qty = 21 Comments: Last Taken:10/22/16 Time:8:20AM Amoxicillin/Potassium Clav (Augmentin 875-125 Tablet) 875 MG-125 MG TABLET 1 Tablet ORAL TWICE DAILY Qty = 14 Instructions: STARTING 10/23/16 Doxycycline Hyclate (Doxycycline Hyclate) 100 MG CAPSULE 1 Tablet ORAL TWICE DAILY Qty = 14 Doxycycline Hyclate (Doxycycline Hyclate) 100 MG TABLET 1 Tablet ORAL TWICE DAILY Qty = 14 This prescription has been renewed Start taking the following new medications: Hydrocodone/Chlorphen P-Stirex (Hydrocodone-Chlorphen ER Susp) 10 MG-8 MG/5 ML ( 5 ML) LILY.ER.12H 1 Teaspoonful ORAL Every night as needed for COUGH Qty = 60 No Refills Amoxicillin/Potassium Clav (Augmentin 875-125 Tablet) 875 MG-125 MG TABLET 1 Tablet ORAL TWICE DAILY Qty = 14 No Refills Instructions: STARTING 10/23/16 Doxycycline Hyclate (Doxycycline Hyclate) 100 MG CAPSULE 1 Tablet ORAL TWICE DAILY Qty = 14 Refills = 1 Copies To: THANG XIAO,GARTH Bush Attending MD Review Statement Documenting Attending: IRENE NEGRO MD Other Findings: The patient was seen on the day of discharge and agree with the plan of care. After discharge the patient's sputum culture was verified to be growing beta lactamase positive H flu and Psittacosis Ab was negative. The patient was instructed to continue 7 day course of Augmentin as prescribed.
[2016-10-21 23:36] VITALS: BP 140/60
[2016-10-22 07:33] VITALS: BP 144/74
[2016-10-22 08:20] VITALS: BP 144/74
--- NOTE | 2016-10-22 08:21 | PN- Housestaff ---
CAROLA XIAO,VENITA 10/22/16 08: Subjective Follow-up For: Community-acquired pneumonia Subjective: Patient seen and examined. He is seen sitting upright in his bed resting comfortably. He appears to be in no acute distress. He reports no worsening of shortness of breath and denies any further cough. Otherwise he states that he feels well and is ready to be discharged home today. Additionally he denies any headache, fever, chills, chest pain, palpitations, worsening shortness of breath, cough, nausea, vomiting, diarrhea. No overnight events reported. Review of Systems Constitutional: Reports: see HPI. Objective Last 24 Hrs of Vital Signs/I&O Vital Signs Date Time Temp Pulse Resp B/P Pulse O2 O2 Flow FiO2 Ox Delivery Rate 10/22 0820 83 144/74 10/22 0817 83 144/74 10/22 0733 98.2 83 20 144/74 93 10/21 2336 98.7 86 20 140/60 92 Room Air 10/21 1630 95 Room Air 10/21 1527 98.9 86 20 145/70 93 Room Air Intake & Output 10/22 1600 10/22 0800 10/22 0000 Intake Total 200 580 Output Total 400 Balance -200 580 Intake, IV 100 Intake, Oral 200 480 Output, Urine 400 Physical Exam General Appearance: Alert, Oriented X3, Cooperative, No Acute Distress Other Physical Findings: General - well developed, well nourished middle aged man in no acute distress HEENT - NCAT, PERRL, EOMI, anicteric sclera CVS - S1, S2 w/o m/g/r Resp - CTA bilaterally w/o wheezin/rhonchi/crackles GI - Soft, nontender, nondistended, bowel sounds intact Neuro - Awake and alert, CN II - XII grossly inact Ext - normal pulses, no cyanosis/clubbing/edema Current Medications: Current Medications Sig/Art Start time Last Medication Dose Route Stop Time Status Admin Acetaminophen 325 MG Q6 PRN 10/19 1500 AC 10/19 PO 1945 Acetaminophen 1,000 MG Q6P PRN 10/19 1500 AC IV Albuterol Sulfate 3 ML BID 10/20 2199 AC 10/21 INH 2205 Albuterol Sulfate 2 PUF Q4-6 PRN PRN 10/19 1615 AC INH Aspirin Buffered 81 MG 10/19 AC 10/21 PO 2157 Atorvastatin Calcium 40 MG 2200 10/19 2200 AC 10/21 PO 2157 Benzonatate 100 MG TID 10/20 1000 AC 10/22 PO 0820 Ceftriaxone Sodium 1,000 MG DAILY 10/20 1000 AC 10/22 IV 0818 Clopidogrel Bisulfate 75 MG DAILY 10/20 1000 AC 10/22 PO 0817 Cyclobenzaprine HCl 5 MG TID 10/21 1000 AC 10/22 PO 0816 Diclofenac Sodium 1 LOKI 4 TIMES/DAY PRN 10/20 2014 AC TOP Docusate Sodium 100 MG DAILY NEEDED PRN 10/20 2014 AC 10/21 PO 0914 Doxycycline Hyclate 100 MG Q12 10/20 1000 AC 10/22 Sodium Chloride 100 ML IV 0825 Enoxaparin Sodium 40 MG DAILY 10/19 1449 AC 10/22 SC 0824 Guaifenesin 600 MG Q12 10/19 2200 AC 10/22 PO 0816 Guaifenesin/ 10 ML Q6P PRN 10/20 0900 AC 10/21 Dextromethorphan PO 2158 Insulin Aspart 0 TIDAC 10/21 0800 AC 10/22 SC 0816 Lisinopril 40 MG DAILY 10/20 1000 AC 10/22 PO 0817 Melatonin 3 MG AT BEDTIME 10/19 2200 AC 10/21 PO 2157 Metoprolol Succinate 25 MG DAILY 10/20 1000 AC 10/22 PO 0820 Oxycodone/ 2 TAB Q6P PRN 10/19 1500 AC 10/21 Acetaminophen PO 1656 Patient Medication 1 ED .STK-MED ONE 10/21 1358 [place] Teaching ED 10/21 1359 Senna 187 MG AT BEDTIME 10/19 2200 AC 10/21 PO 2158 Timolol Maleate 1 GTT BID 10/19 2200 AC 10/22 OPH 0832 Assessment/Plan Assessment: Patient has clinically improving community-acquired pneumonia. Sputum cultures demonstrated growth of beta lactamase producing Haemophilus. Patient is to be discharged home on oral Augmentin/doxycycline for 7 day total antibiotic course with instruction to follow-up with his PCP Dimitry Spence MD as an outpatient for further evaluation and follow-up of his pending psittacosis lab studies. Problem list: -Community-acquired pneumonia -Hyperlipidemia -Hypertension -Coronary artery disease -Diabetes mellitus Plan: -General medicine -Augmentin 875 mg by mouth twice a day -Doxycycline 100 mg by mouth twice a day -Guaifenesin 600 mg by mouth twice a day -Tussionex one tablespoon by mouth every afternoon as needed for cough -DVT prophylaxis -Full code -Discharge to home Problem List: 1. Community acquired pneumonia Pain Ratin Pain Location: None Pain Goal: Remain pain free Pain Plan: As noted in plan Tomorrow's Labs & Rationales: None IRENE NEGRO MD 10/22/16 1628: Attending MD Review Statement Attending Statement Attending MD Statement: examined this patient, discuss w/resident/PA/CHAMBER MAGISTRATE, agreed w/resident/PA/CHAMBER MAGISTRATE, reviewed EMR data (avail), discussed with nursing, amended to note Attending Assessment/Plan: The patient was seen and discussed with house staff. Agree with plan of care as outlined. Possible H-flu (beta lactamase positive) from sputum. OK to discharge today on Augmentin/Doxycycline. Await Psittacosis Ab.
[2016-10-22] MEDS ORDERED: DOXYCYCLINE HY100 M2 PO ×2 (09:40→09:53)
[2016-10-22] MEDS ORDERED: AUGMENTIN 875-1 EACH PO ×2 (09:40→09:53)
[2016-10-22] MEDS ORDERED: HYDROCODONE-CHLO5 ML PO (09:51)
[2016-10-22] MEDS ORDERED: DOXYCYCLINE HY100 M4 PO (09:53)
--- NOTE | 2016-10-23 14:02 | PN- Att Addend ---
Attending Addendum Attending Brief Note Sputum culture positive for H flu beta-lactamase positive. Psittacosis Ab negative. Will advise patient to continue Augmentin.
== END 2016-10-22 12:53 | DRG 195 ==
LOC: ENRESERVDT → ENRESERVTM → ERH 12:07 → ERHI 16:12 → 2NB 16:12 → ENPENDDIS 16:12 → 2NB 19:51
PROVIDERS: Physician Assistant Medical; Student in an Organized Health Care Education/Training Program; ADMIT Internal Medicine
DX: J10.00 Influenza due to other identified influenza virus with unspecified type of pneumonia (principal); I10 Essential (primary) hypertension; E78.5 Hyperlipidemia, unspecified; I25.10 Atherosclerotic heart disease of native coronary artery without angina pectoris; E11.9 Type 2 diabetes mellitus without complications; I73.9 Peripheral vascular disease, unspecified; L72.0 Epidermal cyst; Z95.5 Presence of coronary angioplasty implant and graft; H40.9 Unspecified glaucoma; Z79.84 Long term (current) use of oral hypoglycemic drugs
CPT/HCPCS: 2NBP; 86618; 86631; 86632; 81001; 82436; 87040; 87070; 87086; 87449; 87450; 87804; 87804-59; 93005; 93010; J0131; J0696; J0713; J1650; J2280; J3370; J3490; J7060